=== PATIENT | male | born 1975 | race Caucasian/White ===

== ENCOUNTER 2018-07-12 08:48 | Day surgery (SDC) | payer OTHER ==
[~2018-07-12] VITALS: Ht 167.6 cm; Wt 158.0 kg
[2018-07-12] VITALS (11 sets, daily range): BP systolic 113–153; BP diastolic 65–93; PULSE 69–84; RESP 14–27; Ht 167.6 cm; Wt 158.0 kg
[~2018-07-12 08:48] MED LIST: CEFAZOLIN 1 GM INJ ONE
[2018-07-12] MEDS ORDERED: CEFAZOLIN 2 GM/50 ML (PMX) 50 ML IVPB ONE (10:00)
[2018-07-12] MEDS ORDERED: SOD CHLORIDE 0.9% 1,000 ML IV ONE (10:00)
[2018-07-12] MEDS ORDERED: LIDOCAINE 2% (MDV) 20 ML INJ ONE ×2 (11:27→12:00)
[2018-07-12] MEDS ORDERED: BUPIVACAINE 0.5%/EPI (SDV) 30 ML INJ ONE (11:27)
--- NOTE | 2018-07-12 11:49 | PREAC ---
Date/Time of Note Date/Time of Note DATE: 07/12/18 TIME: 11:47 Anesthesia Eval and Record Evaluation Time Pre-Procedure Interview DATE: 07/12/18 TIME: 11:47 Age 43 Sex male NPO: 8 hrs Preoperative diagnosis LEFT BACK MASS Planned procedure EXCISION LEFT BACK MASS Past Medical History Past Medical History: Includes Pulm: Sleep Apnea GI: Morbid obesity (BMI 56) Surgery & Anesthesia Issues No known issue Meds Anticoagulation: No Beta Pbalo within 24 hr: No Reason Beta Pablo not given: Pt. not on B-Pablo No Active Prescriptions or Reported Meds Current Medications Sodium Chloride 1,000 ml @ 75 mls/hr [id number] ONCE IV ; Start 07/12/18 at 10:00; Stop 07/12/18 at 23:19 Meds reviewed: Yes Allergies Coded Allergies: No Known Allergy (Unverified , 07/12/18) Allergies Reviewed: Yes Labs/Studies Labs Reviewed: Reviewed by anesthesiologist Result Diagram: 07/12/18 0940 07/12/18 0940 Laboratory Tests 07/12/18 09:40 test: N/A Studies: ECG (NON SPECIFIC ST-T CHANGES), CXR (NAPD) Pre-procedure Exam Last vitals Vital Signs Date Temp Pulse Resp B/P (MAP) Pulse Ox O2 O2 Flow FiO2 Time Delivery Rate 07/12/18 96.8 74 16 134/81 92 Room Air 09:57 (98) Airway: Adequate mouth opening, Adequate thyromental dist Mallampati: Mallampati III Teeth: Normal Lung: Normal Heart: Normal ASA Physical Status ASA physical status: 4 Emergency: None Planned Anesthetic General/MAC: MAC Planned Pain Management Parenteral pain med, Local by surgeon Pre-operative Attestations Prior to commencing anesthesia and surgery, the patient was re-evaluated, there was verification of: *The patient's identity *The results of appropriate recent lab work and preoperative vital signs *The above evaluation not changing prior to induction *Anesthetic plan, risk benefits, alternative and complications discussed with patient/family; questions answered; patient/family understands, accepts and wishes to proceed. Gene Gee M.D. Jul 12, 2018 11:49
[2018-07-12] MEDS ORDERED: IPRATROPIUM (NEB) 0.5 MG/2.5 ML AMP HHN PRN (12:00)
[2018-07-12] MEDS ORDERED: FENTAnyl 50 MCG/ML VIAL IV PRN ×3 (12:00)
[2018-07-12] MEDS ORDERED: DIPHENHYDRAMINE 50 MG INJ IV PRN (12:00)
[2018-07-12] MEDS ORDERED: hydrALAzine 20 MG INJ IV PRN (12:00)
[2018-07-12] MEDS ORDERED: HYDROmorphONE 1 MG/5 ML IV SYRINGE IV PRN ×3 (12:00)
[2018-07-12] MEDS ORDERED: LABETALOL HCL 20MG INJ IV PRN (12:00)
[2018-07-12] MEDS ORDERED: EPHEDrine SULFATE 50 MG/5 ML SYG IV PRN (12:00)
[2018-07-12] MEDS ORDERED: TRIMETHOBENZAMIDE 100 MG/ML VIAL IM PRN (12:00)
[2018-07-12] MEDS ORDERED: ALBUTEROL 0.083% (NEB) 2.5 MG/3 ML AMP HHN PRN (12:00)
[2018-07-12] MEDS ORDERED: MIDAZOLAM 1 MG/ML 2 ML INJ IV PRN (12:00)
[2018-07-12] MEDS ORDERED: ONDANSETRON 4 MG INJ IV PRN (12:00)
[2018-07-12] MEDS ORDERED: MEPERIDINE 25 MG INJ IV PRN (12:00)
[2018-07-12] MEDS ORDERED: OXYCODONE/ACETAMINOPHEN (5/325) TAB PO PRN ×2 (12:00)
[2018-07-12] MEDS ORDERED: KETOROLAC 30 MG INJ ONE (12:02)
[2018-07-12] MEDS ORDERED: ONDANSETRON 4 MG INJ ONE (12:07)
[2018-07-12] MEDS ORDERED: HYDROCODONE/APAP (5/325) TAB PO ONE (12:30)
[2018-07-12] MEDS ORDERED: ACETAMINOPHEN 1000MG/100ML IV 100 ML IVPB ONE (12:30)
--- NOTE | 2018-07-12 12:32 | OPR ---
Date/Time of Note Date/Time of Note DATE: 07/12/18 TIME: 12:29 Operative Report Procedure Date: Jul 12, 2018 Preoperative Diagnosis left upper back mass Postoperative Diagnosis same Operation/Procedure Performed 1. excision of left upper back mass 11 cm incision 10 cm mass 2. localized adjacent tissue transfer with the use of skin flaps of the back 22 sq cm defect 3. therapeutic injection of subcutaneous local anesthesia Surgeon see signature line Splicing Technician none Anesthesia Type: MAC Estimated Blood Loss: 10 - 50 ml's Transfusion none Specimen left upper back mass Grafts/Implants none Complications none Pt Condition Post Procedure: stable Indications This is a 43-year-old male with a left upper back mass. He has obstructive sleep apnea and morbid obesity with a BMI of 56.2. He had a long discussion with both the anesthesiologist and myself regarding his potential risks of pulmonary complications if we were to do this under general anesthesia. The mass is very large however he elected for excision of his back mass under MAC. Potential complications were discussed the patient. Complications include but not limited to bleeding infection wound dehiscence and other pulmonary complications secondary to anesthesia were discussed. Patient expressed understanding and consents to the operation. Procedure Description Patient is taken to the OR and prepped and draped in usual sterile fashion under MAC anesthesia. Surgical timeout was performed. IV antibiotics given. Therapeutic subcutaneous local anesthesia is injected all around the incision site and around the mass. Transverse incision is made with a 15 blade over the mass. Dissection with cautery was carried onto the mass and the mass was circumferentially excised using cautery. Good hemostasis established. Due to the tissue defect localized adjacent to his transfer with use of skin flaps was performed. Multilayer closure with interrupted 3-0 Vicryl and skin ritchie. Dry dressings were applied. Yesica DUKES Jul 12, 2018 12:32
--- NOTE | 2018-07-12 12:52 | PAC ---
Date/Time of Note Date/Time of Note DATE: 07/12/18 TIME: 12:51 Post-Anesthesia Notes Post-Anesthesia Note Last documented vital signs Vital Signs Date Temp Pulse Resp B/P (MAP) Pulse Ox O2 O2 Flow FiO2 Time Delivery Rate 07/12/18 98.9 72 14 141/76 100 Mask 6.0 12:51 (97) Activity: WNL Respiratory function: WNL Cardiovascular function: WNL Mental status: Baseline Pain reasonably controlled: Yes Hydration appropriate: Yes Nausea/Vomiting absent: Yes Gene Gee M.D. Jul 12, 2018 12:52
--- NOTE | 2018-07-13 19:45 | RADRPT ---
Vent Rate: 74 bpm RR Interval: 0 msec IN Interval: 138 msec QRS Duration: 82 msec QT Interval: 376 msec QTC Interval: 417 msec P-R-T [place]: 46 - 36 - 50 degrees Normal sinus rhythm Nonspecific T wave abnormality Abnormal ECG Electronically Signed By: José Luis Guillaume [id number]
== END 2018-07-12 14:52 | disposition home or self-care (01) ==
LOC: SDS 08:48
PROVIDERS: ATTEND Surgery
DX: D17.1 Benign lipomatous neoplasm of skin and subcutaneous tissue of trunk (principal); E66.01 Morbid (severe) obesity due to excess calories; Z68.43 Body mass index [BMI] 50.0-59.9, adult
CPT/HCPCS: 14001; 71045; 80053; 85025; 85610; 85730; 88307; 93005; J0131; J1885; J2405; J3010; Z7512; Z7610; J0690